=== PATIENT | female | born 1980 | race African-American/Black ===

== ENCOUNTER 2016-08-15 09:35 | Emergency (ER) | payer OTHER ==
[2016-08-15 09:45] VITALS: BP 150/103; PULSE 87; TEMP 98.2; BMI 43.0
[2016-08-15] MEDS ORDERED: TOBRAMYCIN 0.3% OPHTH SOLN 5 ML BOTTLE ONE (10:03)
[2016-08-15] MEDS ORDERED: TOBRA 0.3%/DEXAMETH 0.1% OPHTHALMIC SUSP 2.5 ML BTL ONE (10:06)
--- NOTE | 2016-08-15 10:08 | PDOC ---
History of Present Illness - General Chief Complaint: Eye Problem Stated Complaint: LEFT EYE IRRITATION Time Seen by Provider: 08/15/16 09:38 History Source: Patient (Patient walked in complaining of left eye irritation after being exposed to her recently diagnosed pink eye boyfriend) Exam Limitations: No Limitations - History of Present Illness Timing/Duration: 24 hours Severity: moderate Modifying Factors: improves with: cold therapy Associated Symptoms: reports: denies symptoms Past History - Travel Traveled outside of the country in the last 30 days: No Close contact w/someone who was outside of country & ill: No - Past Medical History Allergies/Adverse Reactions: Allergies Allergy/AdvReac Type Severity Reaction Status Date / Time No Known Allergies Allergy Verified 08/15/16 09:37 Home Medications: Ambulatory Orders Albuterol Sulfate Inhaler - [Ventolin HFA Inhaler -] 1 - 2 inh PO QID PRN Aspirin [Aspirin EC] 81 mg PO DAILY 06/06/15 Chlorthalidone [Hygroton -] 25 mg PO DAILY #14 tablet 01/24/16 Losartan Potassium [Cozaar -] 100 mg PO DAILY #30 tablet 01/25/16 Nebivolol [Bystolic -] 20 mg PO DAILY 05/14/16 Tobramycin/Dexamethasone [Tobradex Eye Drops] 5 ml OP TID #1 drops.susp Asthma: Yes (ASTHMA) HTN: Yes Suicide Attempt (Hx): No Other medical history: 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 - Surgical History Abdominal Surgery: Yes (MESH FOR HERNIA) - Immunization History Immunization Up to Date: Yes - Psycho/Social/Smoking Cessation Hx Anxiety: No Suicidal Ideation: No Smoking History: Current some day smoker Have you smoked in the past 12 months: Yes Number of Cigarettes Smoked Daily: 1 Information on smoking cessation initiated: Yes 'Breaking Loose' booklet given: 08/15/16 Hx Alcohol Use: Yes (social) Drug/Substance Use Hx: No Substance Use Type: None Hx Substance Use Treatment: No Review of Systems - Review of Systems Able to Perform ROS?: Yes Is the patient limited [place] proficient: Yes Constitutional: Yes: Symptoms Reported, Malaise, Other (Very Stressed recently) HEENTM: Yes: See HPI Respiratory: No: Symptoms reported, See HPI, Cough, Orthopnea, Shortness of Breath, SOB with Exertion, SOB at Rest, Stridor, Wheezing, Productive cough, Hemoptysis, Other Cardiac (ROS): No: Symptoms Reported, See HPI, Chest Pain, Edema, Irregular Heart Rate, Lightheadedness, Palpitations, Syncope, Chest Tightness, Other ABD/GI: No: Symptoms Reported, See HPI, Abdominal Distended, Abd. Pain w/ defecation, Blood Streaked Bowels, Constipated, Diarrhea, Difficulty Swallowing , Nausea, Poor Appetite, Poor Fluid Intake, Rectal Bleeding, Vomiting, Indigestion, Abdominal cramping, Tarry Stools, Other All Other Systems: Reviewed and Negative *Physical Exam - Vital Signs Last Vital Signs Temp Pulse Resp BP Pulse Ox 98.2 F 87 18 150/103 100 08/15/16 09:35 08/15/16 09:35 08/15/16 09:35 08/15/16 09:35 08/15/16 09:35 - Physical Exam General Appearance: Yes: Nourished, Appropriately Dressed. No: Apparent Distress HEENT: positive: ALLISON Neck: positive: Supple Lymphatic: negative: Adenopathy Musculoskeletal: positive: Normal Inspection Integumentary: positive: Normal Color Neurologic: positive: spice miller II-XII NML intact, Fully Oriented, Alert, Normal Mood/ Affect *DC/Admit/Observation/Transfer Diagnosis at time of Disposition: Conjunctivitis due to adenovirus, left eye - Discharge Dispostion Disposition: HOME Condition at time of disposition: Stable Admit: No - Prescriptions Prescriptions: Tobramycin/Dexamethasone [Tobradex Eye Drops] 5 ml OP TID #1 drops.susp - Referrals Referrals: Axel Pillai MD [Staff Physician] - - Patient Instructions Printed Discharge Instructions: How to Instill Eye Drops, DI for Red Eye - Post Discharge Activity Work/School Note: Back to Work
[2016-08-15] MEDS ORDERED: TOBRA 0.3%/DEXAMETH 0.1% OPHTHALMIC SUSP 2.5 ML BTL OS SCH (12:00)
== END 2016-08-15 10:35 | disposition home or self-care (01) ==
LOC: FER 09:35
DX: B30.1 Conjunctivitis due to adenovirus (principal); F17.210 Nicotine dependence, cigarettes, uncomplicated; J45.909 Unspecified asthma, uncomplicated; I10 Essential (primary) hypertension
CPT/HCPCS: 99283-25

== ENCOUNTER 2017-08-28 06:12 | Day surgery (SDC) | payer OTHER ==
[2017-08-27 12:34] VITALS: BMI 43.7
[2017-08-28] MEDS ORDERED: LIDOCAINE HCL/PF 2% SDV 5ML VIAL ONE (07:39)
[2017-08-28] MEDS ORDERED: SUCCINYLCHOLINE CHLORIDE 200 MG/10 ML VIAL ONE (07:39)
[2017-08-28] MEDS ORDERED: PROPOFOL 20 ML ONE ×2 (07:39)
[2017-08-28] MEDS ORDERED: fentaNYL CITRATE 250 MCG/5 ML VIAL ONE (07:39)
[2017-08-28] MEDS ORDERED: MIDAZOLAM HCL 2 MG/2 ML SINGLE DOSE VIAL ONE (07:39)
[2017-08-28] MEDS ORDERED: DEXTROSE 5%-0.45% SALINE 1,000 ML IV SCH (07:45)
--- NOTE | 2017-08-28 07:45 | HP ---
History & Physical Update - History History: No Change - Physical Physical: No Change - Assessment Assessment: No Change - Plan Plan: No Change
[2017-08-28] MEDS ORDERED: ACETAMINOPHEN 1000 MG/100 ML VIAL (NON FORMULARY) IVPB ONE (07:46)
[2017-08-28] MEDS ORDERED: ROCURONIUM BROMIDE 50 MG/5 ML VIAL ONE (08:02)
[2017-08-28] MEDS ORDERED: ceFAZolin SODIUM 1 GM VIAL IVPB ONE (08:03)
[2017-08-28] MEDS ORDERED: DEXAMETHASONE SOD PHOSPHATE 4 MG/1 ML VIAL ONE (08:03)
[2017-08-28] MEDS ORDERED: ONDANSETRON 4 MG/2 ML VIAL ONE ×2 (08:03→08:52)
[2017-08-28] MEDS ORDERED: ceFAZolin SODIUM 1 GM VIAL ONE (08:03)
[2017-08-28] MEDS ORDERED: VASOPRESSIN 20 UNITS/ML VIAL IV ONE (08:05)
[2017-08-28] MEDS ORDERED: ONDANSETRON 4 MG/2 ML VIAL IVPUSH PRN (08:23)
[2017-08-28] MEDS ORDERED: oxyCODONE HCL 5 MG TABLET PO PRN (08:23)
[2017-08-28] MEDS ORDERED: LACTATED RINGERS SOLUTION 1,000 ML IV SCH (08:30)
[2017-08-28] MEDS ORDERED: NEOSTIGMINE METHYLSULFATE 0.5 MG/ML - 10 ML MDV ONE (08:36)
[2017-08-28] MEDS ORDERED: GLYCOPYRROLATE 0.2 MG/1 ML VIAL ONE ×2 (08:36→08:52)
[2017-08-28] MEDS ORDERED: ACETAMINOPHEN INJECTION 100 ML IVPB ONE (09:15)
[2017-08-28 10:58] VITALS: TEMP 97.7
[2017-08-28 15:05] VITALS: BP 138/76; PULSE 66
--- NOTE | 2017-10-27 13:53 | OP ---
DATE OF OPERATION: 08/28/2017 PREOPERATIVE DIAGNOSES: Stress urinary incontinence, hypermobile urethra. POSTOPERATIVE DIAGNOSES: Stress urinary incontinence, hypermobile urethra. PROCEDURE: Suburethral sling and cystoscopy. ANESTHESIA: General. FINDINGS: A hypermobile urethra. IMPLANTS: Sling. DRAIN: None. ESTIMATED BLOOD LOSS: Minimal. SURGEON: Yang Benitez MD PREOPERATIVE INDICATIONS: The patient is a 37-year-old female who suffers from stress urinary incontinence. This is done by history, exam, and testing. She comes to the OR for sling placement. OPERATION: Patient was brought to the OR, placed on the table in the supine position, given general anesthesia and IV antibiotics, then placed in the modified lithotomy position. The groin was prepped and draped sterilely. Timeout was performed. Villeda catheter was placed. The mid portion of the urethra was identified and marked with a marking pen. Pitressin was injected underneath the vaginal mucosa in this area. An incision was made over the middle portion of the urethra in the midline. Using Metzenbaum scissors, the vaginal mucosa was sharply dissected off the periurethral tissues in a lateral fashion. Bladder was then emptied. Using trocars for an Altis mini sling, the sling was placed along the right side and to control through the incision and around to the obturator canal. It was then rotated and implanted. This was also done on the left side similarly. Cystoscopy was performed. No evidence of any perforation was seen. The sling was appropriately tightened and lay flat along the mid-urethra with low tension. Excess suture was excised. The incision was then closed with 2-0 Vicryl suture in a running fashion. Patient was woken up. Nilda [id number]
== END 2017-08-28 12:05 | disposition home or self-care (01) ==
LOC: JASU-SURG 06:12
PROVIDERS: ATTEND Urology
PROC: 0TSD0ZZ Reposition Urethra, Open Approach (ICD-10-PCS; principal; 2017-08-28 07:30)
DX: N39.3 Stress incontinence (female) (male) (principal); E66.01 Morbid (severe) obesity due to excess calories; K21.9 Gastro-esophageal reflux disease without esophagitis
CPT/HCPCS: 84703; 94760; J0131

== ENCOUNTER 2018-06-15 10:23 | Emergency (ER) | payer OTHER ==
[2018-06-15 10:41] VITALS: TEMP 99.8; BMI 51.2
[2018-06-15] MEDS ORDERED: ALBUTEROL SO4 2.5/IPRATROPIUM 0.5 INH SOL 3 ML VIAL.NEB. NEB ONE ×3 (11:04→13:00)
--- NOTE | 2018-06-15 11:14 | PDOC ---
History of Present Illness - General Chief Complaint: Respiratory Stated Complaint: RESPIRATORY COLD SYMPTOMS Time Seen by Provider: 06/15/18 10:29 History Source: Patient Exam Limitations: No Limitations - History of Present Illness Initial Comments: 06/15/18 11:07 CHIEF COMPLAINT: Asthma exacerbation for 2 days with a cold HISTORY OF PRESENT ILLNESS: 37-year-old female with a history of long-standing asthma, last treated with prednisone a couple of months ago for an upper respiratory infection followed by wheezing and asthma exacerbation. Patient also has a history of hypertension and morbid obesity. Patient was doing well until 2 days ago when she developed a sore throat and nasal congestion with a runny nose and white discharge. She denies fever or chills. Typically, after an upper respiratory infection her asthma flares up, and she says she has the same thing now that started with a cold. She's been having increased wheezing, especially at night, and shortness of breath secondary to wheezing. There is no chest pain. The shortness of breath gets worse when the wheezing is worse. REVIEW OF SYSTEMS: GENERAL/CONSTITUTIONAL: No fever or chills. No weakness. No weight change. HEAD, EYES, EARS, NOSE AND THROAT: No change in vision. No ear pain or discharge. No sore throat. CARDIOVASCULAR: No chest pain. Positive shortness of breath and wheezing. RESPIRATORY: Positive mild nonproductive cough, positive wheezing, no sputum production or hemoptysis. GASTROINTESTINAL: No nausea, vomiting, diarrhea or constipation. No rectal bleeding. GENITOURINARY: No dysuria, frequency, or change in urination. MUSCULOSKELETAL: No joint or muscle swelling or pain. No neck or back pain. SKIN AND BREASTS: No rash or easy bruising. NEUROLOGIC: No headache, vertigo, loss of consciousness, or loss of sensation. PSYCHIATRIC: No depression or anxiety. ENDOCRINE: No increased thirst. No abnormal weight change. HEMATOLOGIC/LYMPHATIC: No anemia, easy bleeding, or history of blood clots. ALLERGIC/IMMUNOLOGIC: No hives or skin allergy. No latex allergy. Past History - Past Medical History Allergies/Adverse Reactions: Allergies Allergy/AdvReac Type Severity Reaction Status Date / Time No Known Allergies Allergy Verified 06/15/18 10:41 Home Medications: Ambulatory Orders Aspirin [Aspirin EC] 81 mg PO DAILY 06/06/15 Chlorthalidone [Hygroton -] 25 mg PO DAILY #14 tablet 01/24/16 Losartan Potassium [Cozaar -] 100 mg PO DAILY #30 tablet 01/25/16 Nebivolol [Bystolic -] 20 mg PO DAILY 05/14/16 Albuterol 0.083% Nebulizer Sarah [Ventolin 0.083% Nebulizer Soln -] 1 neb NEB Q4H PRN #25 vial 06/15/18 Albuterol Sulfate Inhaler - [Ventolin HFA Inhaler -] 1 - 2 inh PO QID PRN #1 inhaler 06/15/18 Budesonide/Formeterol Fumarate [SYMBICORT 80/4.5mcg -] 2 inh PO BID PRN #1 cannister 06/15/18 Prednisone [Prednisone 50 MG TABLETS] 50 mg PO DAILY 5 Days #5 tablet 06/15/18 Asthma: Yes (ASTHMA) COPD: No DVT: No Diabetes: No HTN: Yes - Surgical History Abdominal Surgery: Yes (ventral hernia repair 2013) - Immunization History Immunization Up to Date: Yes - Suicide/Smoking/Psychosocial Hx Smoking History: Current some day smoker (Social smoker when she goes out to a bar, otherwise no cigarettes on a daily basis) Have you smoked in the past 12 months: No Number of Cigarettes Smoked Daily: 1 Information on smoking cessation initiated: Yes 'Breaking Loose' booklet given: 08/15/16 Hx Alcohol Use: Yes (OCCASSIONAL) Drug/Substance Use Hx: No Substance Use Type: None Hx Substance Use Treatment: No *Physical Exam - Vital Signs Last Vital Signs Temp Pulse Resp BP Pulse Ox 99.8 F H 73 20 163/111 H 96 06/15/18 10:24 06/15/18 10:24 06/15/18 10:24 06/15/18 10:24 06/15/18 10:24 - Physical Exam Comments: 06/15/18 11:15 GENERAL: The patient is awake, alert, and fully oriented, in no acute distress. She is morbidly obese. HEAD: Normal with no signs of trauma. EYES: Pupils equal, round and reactive to light, extraocular movements intact, sclera anicteric, conjunctiva clear. ENT: Ears normal, nares patent, oropharynx clear without exudates. Moist mucous membranes. NECK: Normal range of motion, supple without lymphadenopathy, JVD, or masses. LUNGS: Breath sounds with expiratory wheezes bilaterally. No crackles. HEART: Regular rate and rhythm, normal S1 and S2 without murmur, rub or gallop. ABDOMEN: Soft, nontender, normoactive bowel sounds. No guarding, no rebound. No masses. EXTREMITIES: Normal range of motion, no edema. No clubbing or cyanosis. No cords, erythema, or tenderness. No calf tenderness, no thigh tenderness. NEUROLOGICAL: Cranial nerves II through XII grossly intact. Normal speech, normal gait. PSYCH: Normal mood, normal affect. SKIN: Warm, Dry, normal turgor, no rashes or lesions noted. Moderate Sedation - Procedure Monitoring Vital Signs: Procedure Monitoring Vital Signs Temperature 99.8 F H 06/15/18 10:24 Pulse Rate 73 06/15/18 10:24 Respiratory Rate 20 06/15/18 10:24 Blood Pressure 163/111 H 06/15/18 10:24 O2 Sat by Pulse Oximetry (%) 96 06/15/18 10:24 Heart Score/ECG Review - ECG Impressions Comment:: 06/15/18 11:16 Total EKG shows normal sinus rhythm at a rate of 74 bpm. The axis is normal. The intervals are normal. There is T-wave inversion in lead aVL. There is otherwise no ST or T-wave abnormality. There is a prior EKG from 01/24/2016 which shows T-wave inversion in 1 and aVL. The patient has been on increased blood pressure medication since that time with better blood pressure control, and her voltage and ST segments appear improved since that time. Impression: Normal sinus rhythm with nonspecific T-wave abnormality. ED Treatment Course - LABORATORY CBC & Chemistry Diagram: 06/15/18 11:15 06/15/18 11:15 - RADIOLOGY Radiology Studies Ordered: Category Date Time Status CHEST PA & LAT [RAD] Stat Radiology 06/15/18 11:04 Ordered Medical Decision Making - Medical Decision Making 06/15/18 13:50 37-year-old female with history of asthma and morbid obesity, currently pending for gastric sleeve surgery. Patient presents complaining of asthma exacerbation over the last several days. She started with an upper respiratory infection with a sore throat and nasal congestion from a cold. She then started having wheezing which is typical for her in the setting of a URI. Today on examination, she has bilateral expiratory wheezes. She is in no distress. Chest x-ray shows no congestion and no pneumonia. Twelve-lead EKG shows normal sinus rhythm with nonspecific lateral T-wave inversion, present on prior EKG. Laboratory studies reviewed. There is no leukocytosis. The patient has mild anemia. The MCV is normal. The sodium is poor Low at 133, no treatment needed. Patient was treated with DuoNeb's and prednisone in the ED. Her peak flow improved from 150 pretreatment to 250 post treatment. Her repeat lung exam is clear with no wheezes. Patient is feeling much better and is stable for discharge. She states she has follow-up with her primary care physician this week, Dr. Dl Malloy. She is in the process of being cleared for bariatric surgery. The bariatric surgery is planned to help her control her blood pressure and improve her breathing. Laboratory Results - last 24 hr 06/15/18 06/15/18 06/15/18 11:15 11:15 11:15 WBC 4.2 RBC 4.15 Hgb 10.9 Hct 34.7 MCV 83.4 MCH 26.4 MCHC 31.6 L RDW 14.4 Plt Count 196 MPV 9.3 Absolute Neuts (auto) 2.5 Neutrophils % 61.0 Lymphocytes % 20.8 Monocytes % 15.1 H Eosinophils % 1.4 Basophils % 1.7 Sodium 133 L Potassium 3.8 Chloride 100 Carbon Dioxide 28 Anion Gap 5 L BUN 10 Creatinine 0.8 Creat Clearance w eGFR > 60 Random Glucose 110 H Calcium 8.3 L Total Bilirubin 0.4 AST 24 ALT 21 D Alkaline Phosphatase 76 Troponin I < 0.03 Total Protein 6.9 Albumin 3.4 L 06/15/18 14:06 Peak flow initially was 150 and is 250 post treatment. Patient is feeling much better. *DC/Admit/Observation/Transfer Diagnosis at time of Disposition: Asthma exacerbation Qualifiers: Asthma severity: moderate Asthma persistence: persistent Qualified Code(s): J45.41 - Moderate persistent asthma with (acute) exacerbation - Discharge Dispostion Disposition: HOME Condition at time of disposition: Improved Decision to Admit order: No - Prescriptions Prescriptions: Albuterol 0.083% Nebulizer Sarah [Ventolin 0.083% Nebulizer Soln -] 1 neb NEB Q4H PRN #25 vial PRN Reason: Asthma Albuterol Sulfate Inhaler - [Ventolin HFA Inhaler -] 1 - 2 inh PO QID PRN #1 inhaler PRN Reason: Wheezing Budesonide/Formeterol Fumarate [SYMBICORT 80/4.5mcg -] 2 inh PO BID PRN #1 cannister PRN Reason: Asthma Prednisone [Prednisone 50 MG TABLETS] 50 mg PO DAILY 5 Days #5 tablet - Referrals - Patient Instructions Printed Discharge Instructions: DI for Asthma -- Adult Additional Instructions: Today you were evaluated for shortness of breath secondary to asthma. The chest x-ray was clear. The EKG showed no new findings. The blood tests were also good. You're advised to take albuterol nebulizer or inhaler every 4 hours as needed for wheezing. Take prednisone 50 mg for 5 days in the morning. Use the Symbicort inhaler 2 puffs twice a day. Be sure to take all of your blood pressure medications every day. Follow-up with Dr. Dl Malloy later this week as planned to have a follow-up check of your asthma and her blood pressure. Return to the emergency department for any severe or progressive symptoms. - Post Discharge Activity
[2018-06-15 11:30] LABS: BASO % 1.7 % (0-2.0); EOS % 1.4 % (0-4.5); HEMATOCRIT 34.7 % (32.4-45.2); HEMOGLOBIN 10.9 GM/dl (10.7-15.3); LYMPH % 20.8 % (8-40); MCH 26.4 pg (25.7-33.7); MCHC 31.6 g/dl (32.0-36.0); MEAN CELL VOLUME 83.4 fl (80-96); MEAN PLT VOLUME 9.3 fl (7.5-11.1); MONO % 15.1 % (3.8-10.2); PLATELET COUNT 196 K/MM3 (134-434); RBC 4.15 M/mm3 (3.60-5.2); RDW 14.4 % (11.6-15.6); WHITE BLOOD COUNT 4.2 K/mm3 (4.0-10.8)
[2018-06-15 11:54] LABS: ALBUMIN 3.4 g/dl (3.5-5.0); ALK PHOS 76 U/L (32-92); ANION GAP 5 MMOL/L (8-16); BILIRUBIN,TOTAL 0.4 mg/dl (0.2-1.0); BLOOD UREA NITROGEN 10 mg/dl (7-18); CALCIUM 8.3 mg/dl (8.4-10.2); CHLORIDE 100 mmol/L (98-107); CO2 28 mmol/L (22-28); CREATININE 0.8 mg/dl (0.6-1.3); GLUCOSE,RANDOM 110 mg/dl (74-106); POTASSIUM 3.8 mmol/L (3.5-5.1); SGOT/AST 24 U/L (10-42); SGPT/ALT 21 U/L (10-40); SODIUM 133 mmol/L (136-145); TOT PROT 6.9 g/dl (6.4-8.3)
[2018-06-15] MEDS ORDERED: guaiFENesin 200 MG/10 ML 10 ML UNIT-DOSE CUPS PO ONE (12:33)
[2018-06-15] MEDS ORDERED: guaiFENesin/D-METHORPHAN HB 10 ML UNIT-DOSE CUPS ONE (12:34)
[2018-06-15] MEDS ORDERED: predniSONE 20 MG TABLET (UD) PO ONE (12:53)
[2018-06-15] MEDS ORDERED: guaiFENesin/D-METHORPHAN HB 10 ML UNIT-DOSE CUPS PO ONE (12:54)
[2018-06-15] MEDS ORDERED: predniSONE 10 MG TABLET (UD) ONE ×2 (13:00→13:01)
[2018-06-15 13:52] VITALS: BP 169/106; PULSE 75
[2018-06-15] MEDS ORDERED: amLODIPine BESYLATE 5 MG TABLET (FP) ONE (13:52)
[2018-06-15] MEDS ORDERED: amLODIPine BESYLATE 5 MG TABLET (FP) PO ONE (13:54)
--- NOTE | 2018-06-16 19:01 | EKG ---
Test Reason : Blood Pressure : / mmHG Vent. Rate : 074 BPM Atrial Rate : 074 BPM P-R Int : 162 ms QRS Dur : 076 ms QT Int : 382 ms P-R-T Axes : 049 005 075 degrees QTc Int : 424 ms NORMAL SINUS RHYTHM NONSPECIFIC T WAVE ABNORMALITY ABNORMAL ECG NO PREVIOUS ECGS AVAILABLE Confirmed by VALENTINA RUCKER, HAKEEM ([id number]) on 06/16/2018 7:01:13 PM Referred By: PILAR TAMAYO Confirmed By:HAKEEM MONTGOMERY MD
== END 2018-06-15 14:26 | disposition home or self-care (01) ==
LOC: FER 10:23
PROC: 3E0F7GC Introduction of Other Therapeutic Substance into Respiratory Tract, Via Natural or Artificial Opening (ICD-10-PCS; principal; 2018-06-15)
DX: J45.41 Moderate persistent asthma with (acute) exacerbation (principal)
CPT/HCPCS: 36415; 71046-TC-FY; 80053; 84484; 85025; 93005; 94640; 99284-25

== ENCOUNTER 2019-02-15 21:44 | Emergency (ER) | payer OTHER ==
[2019-02-15 21:48] VITALS: BP 188/116; PULSE 74; TEMP 98.2; BMI 47.1
[2019-02-15] MEDS ORDERED: predniSONE 20 MG TABLET (UD) PO ONE (22:40)
--- NOTE | 2019-02-15 22:46 | PDOC ---
Documentation entered by Celena Lainez SCRIBE, acting as scribe for Atilio Ramos MD. Atilio Ramos MD: This documentation has been prepared by the Fatou peguero Xhesika, SCRIBE, under my direction and personally reviewed by me in its entirety. I confirm that the documentation accurately reflects all work, treatment, procedures, and medical decision making performed by me. History of Present Illness - General Chief Complaint: Itching Stated Complaint: ITCHING Time Seen by Provider: 02/15/19 22:01 History Source: Patient Exam Limitations: No Limitations - History of Present Illness Initial Comments: 02/15/19 22:43 The patient is a 38 year old female, with a significant PMH of HTN who presents to the emergency department for 1 week of generalized migratory areas of pruritus itching. Patient states she was on a cruise to [facility] 2 weeks ago at the onset of her symptoms. Patient notes rashes appear after itching at a certain area for a long period of time. Patient notes her symptoms begin at her fingertips and migrate throughout her body, worsening at night. Patient notes her daughter is endorsing similar symptoms. Patient states she took Benadryl with no relief of symptoms. Patient notes she had an allergy test done 1 month ago that showed patient is only allergic to standard cat hair and white tree. PAST SURGICAL HISTORY: no significant history FAMILY HISTORY: no pertinent history SOCIAL HISTORY: Pt lives with family and is employed. MEDICATIONS: reviewed ALLERGIES: As per nursing notes Past History - Past Medical History Allergies/Adverse Reactions: Allergies Allergy/AdvReac Type Severity Reaction Status Date / Time No Known Drug Allergies Allergy Verified 02/15/19 21:45 Home Medications: Ambulatory Orders Chlorthalidone [Hygroton -] 25 mg PO DAILY #14 tablet 01/24/16 Methylprednisolone [Medrol Dose Dominguez] 4 mg PO ASDIR #21 tablet 02/15/19 Metoprolol Succinate [Toprol Xl] 100 mg PO DAILY 02/15/19 Asthma: Yes (ASTHMA) COPD: No DVT: No Diabetes: No HTN: Yes - Surgical History Abdominal Surgery: Yes (ventral hernia repair 2013) - Immunization History Immunization Up to Date: Yes - Suicide/Smoking/Psychosocial Hx Smoking History: Never smoked Have you smoked in the past 12 months: No Number of Cigarettes Smoked Daily: 1 Information on smoking cessation initiated: No 'Breaking Loose' booklet given: 08/15/16 Hx Alcohol Use: No Drug/Substance Use Hx: No Substance Use Type: None Hx Substance Use Treatment: No Review of Systems - Review of Systems Able to Perform ROS?: Yes Comments:: 02/15/19 22:44 General: No fevers or chills, no weakness, no weight loss HEENT: No change in vision. No sore throat,. No ear pain CardioVascular: No chest pain or shortness of breath Respiratory:No cough, or wheezing. Gastrointestinal: no nausea, vomiting, diarrhea or constipation, No rectal bleeding Genitourinary: No dysuria, hematuria, or frequency Musculoskeletal: No joint or muscle pain or swelling Neurologic: No headache, vertigo, dizziness or loss of consciousness Psychiatric: nor depression Skin: No rashes or easy bruising Endocrine: no increased thirst or abnormal weight change Allergic: (+) generalized migratory areas of pruritus itching All other systems reviewed and normal *Physical Exam - Vital Signs Last Vital Signs Temp Pulse Resp BP Pulse Ox 98.2 F 74 18 188/116 H 100 02/15/19 21:46 02/15/19 21:46 02/15/19 21:46 02/15/19 21:46 02/15/19 21:46 - Physical Exam Comments: 02/15/19 22:44 GENERAL: The patient is awake, alert, and fully oriented, in no acute distress. HEAD: Normal with no signs of trauma. EYES: Pupils equal, round and reactive to light, extraocular movements intact, sclera anicteric, conjunctiva clear. EXTREMITIES: Normal range of motion, no edema. NEUROLOGICAL: Normal speech, normal gait. PSYCH: Normal mood, normal affect. SKIN: Warm, Dry, normal turgor, no rashes or lesions noted. *DC/Admit/Observation/Transfer Diagnosis at time of Disposition: Itching - Discharge Dispostion Disposition: HOME Condition at time of disposition: Stable Decision to Admit order: No - Prescriptions Prescriptions: Methylprednisolone [Medrol Dose Dominguez] 4 mg PO ASDIR #21 tablet - Referrals - Patient Instructions Additional Instructions: For the itching take the Medrol Dosepak as directed by the pack. In addition you can take a long-acting antihistamine such as Claritin or Heather it is [id number]. Return to the emergency department immediately with ANY new, persistent or worsening symptoms. Continue any medications as previously prescribed by your physician. You should follow up with your primary doctor as soon as possible regarding today's emergency department visit. . Please make sure your doctor reviews the results of your emergency evaluation. Thank you for coming to the Emergency Department today for your care. It was a pleasure to see you today. Please note that your evaluation is INCOMPLETE until you follow-up with your doctor. - Post Discharge Activity
[2019-02-15] MEDS ORDERED: predniSONE 20 MG TABLET (UD) ONE (23:03)
== END 2019-02-15 23:15 | disposition home or self-care (01) ==
LOC: FER 21:44
DX: L29.9 Pruritus, unspecified (principal); Z72.0 Tobacco use; I10 Essential (primary) hypertension; J45.909 Unspecified asthma, uncomplicated
CPT/HCPCS: 99281-25

== ENCOUNTER 2019-08-07 20:55 | Observation (INO) | payer OTHER ==
[2019-08-07] MEDS ORDERED: cloNIDine HCL 0.1 MG TABLET PO ONE ×2 (21:10→23:45)
[2019-08-07] MEDS ORDERED: cloNIDine HCL 0.1 MG TABLET ONE (21:16)
[2019-08-07 22:17] LABS: BASO % 0.4 % (0-2.0); EOS % 1.2 % (0-4.5); HEMATOCRIT 32.9 % (32.4-45.2); MCH 27.7 pg (25.7-33.7); MCHC 33.4 g/dl (32.0-36.0); MEAN PLT VOLUME 10.1 fl (7.5-11.1); MONO % 6.3 % (3.8-10.2); NEUT % 72.1 % (42.8-82.8); PLATELET COUNT 224 K/MM3 (134-434); RBC 3.97 M/mm3 (3.60-5.2); RDW 14.7 % (11.6-15.6); WHITE BLOOD COUNT 10.9 K/mm3 (4.0-10.8)
[2019-08-07 22:18] LABS: ALBUMIN 3.4 g/dl (3.4-5.0); BILIRUBIN,TOTAL 0.4 mg/dl (0.2-1); CALCIUM 8.4 mg/dl (8.5-10); CREATININE 0.8 mg/dl (0.55-1.3); POTASSIUM 4.1 mmol/L (3.5-5.1); TOT PROT 6.8 g/dl (6.4-8.2)
[2019-08-07] MEDS ORDERED: methylPREDNISolone NA SUCC 125 MG/2 ML VIAL IVPB ONE (22:31)
[2019-08-07] MEDS ORDERED: methylPREDNISolone NA SUCC 125 MG/2 ML VIAL ONE (22:37)
--- NOTE | 2019-08-07 23:06 | PDOC ---
Documentation entered by Celena Lainez SCRIBE, acting as scribe for Atilio Ramos MD. Atilio Ramos MD: This documentation has been prepared by the Fatou peugero Xhesika, SCRIBE, under my direction and personally reviewed by me in its entirety. I confirm that the documentation accurately reflects all work, treatment, procedures, and medical decision making performed by me. History of Present Illness - General Chief Complaint: Respiratory Stated Complaint: COUGH & SOB Time Seen by Provider: 08/07/19 21:03 History Source: Patient Exam Limitations: No Limitations - History of Present Illness Initial Comments: 08/07/19 21:09 The patient is a 39 year old female, with a significant PMH of HTN, asthma and sleep apnea who presents to the emergency department for 2 weeks of shortness of breath. The patient states she has been having these asthma attacks through out the day, associated with nausea and white phlegm and worsened when laying down. Pt states she used her albuterol pump 1hr prior to arrival with no improvement of symptoms. PAST SURGICAL HISTORY: no significant history FAMILY HISTORY: no pertinent history SOCIAL HISTORY: Pt lives with family and is employed. MEDICATIONS: reviewed ALLERGIES: As per nursing notes 08/07/19 23:03 Assessment and plan: This is a 39-year-old female who comes in complaining of shortness of breath. Patient said over the last couple of days she has had increased difficulty breathing especially when she lays down or exerts herself. Patient said is associated with some mild chest discomfort but no chest pain. Patient says she also has been coughing up some frothy white phlegm. Patient otherwise took her albuterol inhaler multiple times today without any relief and when she came in her blood pressure was very high. Patient was given clonidine with much improved blood pressure and work-up was obtained including CBC, comp, troponin, EKG. Patient checks respiratory showed no acute pathology. Patient's BNP was mildly elevated. Patient's EKG showed some left atrial enlargement and nonspecific ST- T wave changes at a rate of 79 EKG was sinus rhythm Given patient's risk factors I am going to admit her to a observation bed and rule her out. Patient will be admitted to observation under the hospitalist service. Past History - Past Medical History Allergies/Adverse Reactions: Allergies Allergy/AdvReac Type Severity Reaction Status Date / Time No Known Drug Allergies Allergy Verified 02/15/19 21:45 Home Medications: Ambulatory Orders Chlorthalidone [Hygroton -] 25 mg PO DAILY #14 tablet 01/24/16 Metoprolol Succinate [Toprol Xl] 100 mg PO DAILY 02/15/19 Albuterol Sulfate Inhaler - [Ventolin Hfa Inhaler -] 2 inh PO Q4H PRN 08/07/19 Clonidine HCl [Catapres] 0.1 mg PO PRN PRN 08/07/19 Telmisartan [Micardis] 80 mg PO DAILY 08/07/19 Asthma: Yes (ASTHMA) COPD: No DVT: No Diabetes: No HTN: Yes - Surgical History Abdominal Surgery: Yes (ventral hernia repair 2013) - Immunization History Immunization Up to Date: Yes - Psycho Social/Smoking Cessation Hx Smoking History: Never smoked Have you smoked in the past 12 months: No Number of Cigarettes Smoked Daily: 1 'Breaking Loose' booklet given: 08/15/16 Hx Alcohol Use: No Drug/Substance Use Hx: No Substance Use Type: None Hx Substance Use Treatment: No Review of Systems - Review of Systems Able to Perform ROS?: Yes Comments:: 08/07/19 21:18 General: No fevers or chills, no weakness, no weight loss HEENT: No change in vision. No sore throat,. No ear pain CardioVascular: No chest pain. + shortness of breath Respiratory:No cough, or wheezing. Gastrointestinal: + nausea. + white phlegm. No vomiting, diarrhea or constipation, No rectal bleeding Genitourinary: No dysuria, hematuria, or frequency Musculoskeletal: No joint or muscle pain or swelling Neurologic: No headache, vertigo, dizziness or loss of consciousness Psychiatric: nor depression Skin: No rashes or easy bruising Endocrine: no increased thirst or abnormal weight change Allergic: no skin or latex allergy All other systems reviewed and normal *Physical Exam - Vital Signs Last Vital Signs Temp Pulse Resp BP Pulse Ox 98.1 F 67 17 183/109 H 99 08/07/19 22:47 08/07/19 22:47 08/07/19 22:47 08/07/19 22:47 08/07/19 22:47 - Physical Exam 08/07/19 21:24 General: Well-nourished well-developed individual, no acute distress HEENT: Throat: Normal, tonsils normal, no erythema or exudate Neck: Supple, no meningeal signs, no lymphadenopathy Eyes::Pupils equal reactive and round, extraocular motion intact Chest: Nontender to palpation Cardiac: S1-S2 normal, regular rate and rhythm, no murmurs rubs or gallops Respiratory: Lungs clear to auscultation bilateral Abdomen: Soft, nondistended, normal bowel sounds, nontender to palpation diffusely Extremities: Warm, dry, no cyanosis, clubbing, or edema Skin: No rashes Neuro: Alert and oriented x3, nonfocal exam, grossly intact, normal gait Psych: Normal mood and affect ED Treatment Course - LABORATORY CBC & Chemistry Diagram: 08/07/19 21:45 08/07/19 21:45 - ADDITIONAL ORDERS Additional order review: Laboratory Results 08/07/19 08/07/19 08/07/19 21:45 21:45 21:45 Sodium 138 Potassium 4.1 Chloride 107 Carbon Dioxide 24 Anion Gap 7 L BUN 14.0 Creatinine 0.8 Est GFR (CKD-EPI)AfAm 106.13 Est GFR (CKD-EPI)NonAf 91.57 Random Glucose 102 Calcium 8.4 L Total Bilirubin 0.4 AST 24 ALT 26 Alkaline Phosphatase 81 Creatine Kinase 132 Troponin I < 0.03 B-Natriuretic Peptide 398.5 H Total Protein 6.8 Albumin 3.4 08/07/19 21:45 RBC 3.97 MCV 83.0 MCHC 33.4 RDW 14.7 MPV 10.1 Neutrophils % 72.1 Lymphocytes % 20.0 Monocytes % 6.3 Eosinophils % 1.2 Basophils % 0.4 - RADIOLOGY Radiology Studies Ordered: Category Date Time Status CHEST X-RAY PORTABLE* [RAD] Stat Radiology 08/07/19 21:09 Taken - Medications Given in the ED: ED Medications Discontinued Medications Generic Name Dose Route Start Last Admin Trade Name Freq PRN Reason Stop Dose Admin Clonidine 0.2 mg 08/07/19 21:10 08/07/19 21:18 Catapres - PO 08/07/19 21:11 0.2 mg ONCE ONE Administration Methylprednisolone Sodium Succinate 125 mg 08/07/19 22:31 08/07/19 22:43 Solu-Medrol - IVPB 08/07/19 22:32 125 mg ONCE ONE Administration Discharge - Discharge Information Problems reviewed: Yes Clinical Impression/Diagnosis: Breathing difficulty Condition: Good Disposition: HOME - Admission Yes - Follow up/Referral Referrals: Dl Malloy MD [Primary Care Provider] - - Patient Discharge Instructions - Post Discharge Activity
[2019-08-07] MEDS ORDERED: LABETALOL HCL 200 MG TABLET (FP) PO ONE (23:37)
[2019-08-07] MEDS ORDERED: LABETALOL HCL 200 MG TABLET (FP) ONE (23:47)
[2019-08-08 01:36] VITALS: BMI 52.0
[2019-08-08] MEDS ORDERED: HEPARIN NA (PORCINE) 5,000 UNITS/ML 1ML VIAL SQ SCH (06:00)
[2019-08-08] MEDS ORDERED: LABETALOL HCL 200 MG TABLET (FP) PO SCH (06:00)
--- NOTE | 2019-08-08 07:22 | HP ---
CHIEF COMPLAINT: Shortness of breath PCP: Dr. Dl Malloy HISTORY OF PRESENT ILLNESS: Patient is a 39 year-old female with a PMH significant for HTN, pre-eclampsia, bronchial asthma, HUSAM, and exogenous obesity, who presented to ED with shortness of breath and chest tightness. She denied fever or chills. She denied nausea, vomiting, diarrhea or abdominal pain. She denied headache or lightheadedness. She states that she had cardiac work up outpatient in preparation for gastric sleeve. She has seen Dr. Zac Sands ([facility]) for bariatric surgery. ER course was notable for: (1) Troponin neg x 1 (2) BP 232/156 Recent Travel: No PAST MEDICAL HISTORY: Hypertension Asthma HUSAM Obesity PAST SURGICAL HISTORY: x 2 Umbilical hernia repair Social History: lives with children Smoking: quit 08/2018 Alcohol: no Drugs: no Family History: Father: HTN, Sister: HTN Allergies No Known Drug Allergies Allergy (Verified 02/15/19 21:45) HOME MEDICATIONS: Home Medications Medication Instructions Recorded Chlorthalidone [Hygroton -] 25 mg PO DAILY #14 tablet 01/24/16 Metoprolol Succinate [Toprol Xl] 100 mg PO DAILY 02/15/19 Albuterol Sulfate Inhaler - 2 inh PO Q4H PRN 08/07/19 [Ventolin Hfa Inhaler -] Clonidine HCl [Catapres] 0.1 mg PO PRN PRN 08/07/19 Telmisartan [Micardis] 80 mg PO DAILY 08/07/19 REVIEW OF SYSTEMS CONSTITUTIONAL: Absent: fever, chills, diaphoresis, generalized weakness, malaise, loss of appetite, weight change HEENT: Absent: rhinorrhea, nasal congestion, throat pain, throat swelling, difficulty swallowing, mouth swelling, ear pain, eye pain, visual changes CARDIOVASCULAR: +SOB, chest tightness Absent: chest pain, syncope, palpitations, irregular heart rate, lightheadedness , peripheral edema RESPIRATORY: Absent: cough, shortness of breath, dyspnea with exertion, orthopnea, wheezing, stridor, hemoptysis GASTROINTESTINAL: Absent: abdominal pain, abdominal distension, nausea, vomiting, diarrhea, constipation, melena, hematochezia GENITOURINARY: Absent: dysuria, frequency, urgency, hesitancy, hematuria, flank pain, genital pain MUSCULOSKELETAL: Absent: myalgia, arthralgia, joint swelling, back pain, neck pain SKIN: Absent: rash, itching, pallor HEMATOLOGIC/IMMUNOLOGIC: Absent: easy bleeding, easy bruising, lymphadenopathy, frequent infections ENDOCRINE: Absent: unexplained weight gain, unexplained weight loss, heat intolerance, cold intolerance NEUROLOGIC: Absent: headache, focal weakness or paresthesias, dizziness, unsteady gait, seizure, mental status changes, bladder or bowel incontinence PSYCHIATRIC: Absent: anxiety, depression, suicidal or homicidal ideation, hallucinations. PHYSICAL EXAMINATION Vital Signs - 24 hr 08/07/19 08/07/19 08/07/19 21:01 22:00 22:47 Temperature 98.1 F 98.1 F Pulse Rate 78 Pulse Rate [ 64 67 Right Radial] Respiratory 20 20 17 Rate Blood Pressure 232/156 H Blood Pressure 208/127 H 183/109 H [Left Arm] O2 Sat by Pulse 96 99 99 Oximetry (%) 08/07/19 08/08/19 08/08/19 23:45 00:43 01:15 Temperature 98.7 F Pulse Rate 78 Pulse Rate [ 60 Right Radial] Respiratory 18 18 Rate Blood Pressure 177/114 H Blood Pressure 192/124 H 172/111 H [Left Arm] O2 Sat by Pulse 100 100 Oximetry (%) 08/08/19 08/08/19 03:30 06:17 Temperature 98.3 F Pulse Rate 80 Pulse Rate [ Right Radial] Respiratory 19 Rate Blood Pressure 167/100 Blood Pressure [Left Arm] O2 Sat by Pulse 99 Oximetry (%) GENERAL: Awake, alert, and fully oriented, in no acute distress. HEAD: Normal with no signs of trauma. EYES: Pupils equal, round and reactive to light, extraocular movements intact, sclera anicteric, conjunctiva clear. No lid lag. EARS, NOSE, THROAT: Ears normal, nares patent, oropharynx clear without exudates. Moist mucous membranes. NECK: Normal range of motion, supple without lymphadenopathy, JVD, or masses. LUNGS: Breath sounds equal, clear to auscultation bilaterally. No wheezes, and no crackles. No accessory muscle use. HEART: Regular rate and rhythm, normal S1 and S2 without murmur, rub or gallop. ABDOMEN: Soft, nontender, not distended, normoactive bowel sounds, no guarding, no rebound, no masses. No hepatomegaly or splenomegaly. MUSCULOSKELETAL: Normal range of motion at all joints. No bony deformities or tenderness. No CVA tenderness. UPPER EXTREMITIES: 2+ pulses, warm, well-perfused. No cyanosis. No clubbing. No peripheral edema. LOWER EXTREMITIES: 2+ pulses, warm, well-perfused. No calf tenderness. No peripheral edema. NEUROLOGICAL: Cranial nerves II-XII intact. Normal speech. Normal gait. PSYCHIATRIC: Cooperative. Good eye contact. Appropriate mood and affect. SKIN: Warm, dry, normal turgor, no rashes or lesions noted, normal capillary refill. Laboratory Results - last 24 hr 08/07/19 08/07/19 08/07/19 21:45 21:45 21:45 WBC 10.9 H RBC 3.97 Hgb 11.0 Hct 32.9 MCV 83.0 MCH 27.7 MCHC 33.4 RDW 14.7 Plt Count 224 MPV 10.1 Absolute Neuts (auto) 7.9 Neutrophils % 72.1 Lymphocytes % 20.0 Monocytes % 6.3 Eosinophils % 1.2 Basophils % 0.4 Sodium 138 Potassium 4.1 Chloride 107 Carbon Dioxide 24 Anion Gap 7 L BUN 14.0 Creatinine 0.8 Est GFR (CKD-EPI)AfAm 106.13 Est GFR (CKD-EPI)NonAf 91.57 Random Glucose 102 Calcium 8.4 L Total Bilirubin 0.4 AST 24 ALT 26 Alkaline Phosphatase 81 Creatine Kinase 132 Troponin I < 0.03 B-Natriuretic Peptide Total Protein 6.8 Albumin 3.4 08/07/19 08/08/19 21:45 00:55 WBC RBC Hgb Hct MCV MCH MCHC RDW Plt Count MPV Absolute Neuts (auto) Neutrophils % Lymphocytes % Monocytes % Eosinophils % Basophils % Sodium Potassium Chloride Carbon Dioxide Anion Gap BUN Creatinine Est GFR (CKD-EPI)AfAm Est GFR (CKD-EPI)NonAf Random Glucose Calcium Total Bilirubin AST ALT Alkaline Phosphatase Creatine Kinase Troponin I < 0.02 B-Natriuretic Peptide 398.5 H Total Protein Albumin ASSESSMENT/PLAN: Patient is a 39 year-old female with a PMH significant for HTN, bronchial asthma , HUSAM, and exogenous obesity, placed on observation for SOB and chest tightness. Chest tightness --troponin neg x 1, two pending --ECG: no acute ischemia --telemetry monitoring --cardiology consult --patient had recent cardiac workup for planned gastric bypass Hypertension --continue telmisartan, metoprolol, HCTZ; start nifedipine Asthma --duonebs HUSAM --CPAP at night FEN Fluids: PO intake adequate Electrolytes: replete as indicated Nutrition: low sodium DVT Prophylaxis: subq heparin Dispo: continues to require observation. Full code. Visit type - Emergency Visit Emergency Visit: Yes ED Registration Date: 08/07/19 Care time: The patient presented to the Emergency Department on the above date and was hospitalized for further evaluation of their emergent condition. - New Patient This patient is new to me today: Yes Date on this admission: 08/15/19 - Critical Care Critical Care patient: No
[2019-08-08] MEDS ORDERED: cloNIDine HCL 0.1 MG TABLET PO PRN ×2 (07:24→09:55)
[2019-08-08 07:46] LABS: HEMATOCRIT 35.3 % (32.4-45.2); HEMOGLOBIN 11.2 GM/dl (10.7-15.3); MCH 26.6 pg (25.7-33.7); MCHC 31.9 g/dl (32.0-36.0); MEAN CELL VOLUME 83.6 fl (80-96); MEAN PLT VOLUME 10.3 fl (7.5-11.1); PLATELET COUNT 239 K/MM3 (134-434); RBC 4.22 M/mm3 (3.60-5.2); WHITE BLOOD COUNT 12.3 K/mm3 (4.0-10.8)
[2019-08-08 07:51] LABS: CALCIUM 8.5 mg/dl (8.5-10); CREATININE 0.9 mg/dl (0.55-1.3); POTASSIUM 4.4 mmol/L (3.5-5.1)
[2019-08-08] MEDS: ALBUTEROL SO4 2.5/IPRATROPIUM 0.5 INH SOL 3 ML VIAL.NEB. NEB SCH ×2 (09:27→11:58)
[2019-08-08] MEDS ORDERED: predniSONE 20 MG TABLET (UD) PO SCH (10:00)
[2019-08-08] MEDS ORDERED: VALSARTAN 160 MG TABLET (UD) PO SCH (10:00)
[2019-08-08] MEDS ORDERED: PATIENT'S OWN MEDICATION (NON-FORMULARY) (Telmisartan [Micardis] 80 MG) PO SCH (10:00)
[2019-08-08] MEDS ORDERED: CHLORTHALIDONE 25 MG TABLET PO SCH (10:00)
[2019-08-08] MEDS ORDERED: LISINOPRIL 20 MG TABLET (FP) PO SCH (10:00)
--- NOTE | 2019-08-08 10:06 | EKG ---
Test Reason : Blood Pressure : / mmHG Vent. Rate : 079 BPM Atrial Rate : 079 BPM P-R Int : 124 ms QRS Dur : 070 ms QT Int : 386 ms P-R-T Axes : 031 041 032 degrees QTc Int : 442 ms POOR DATA QUALITY, INTERPRETATION MAY BE ADVERSELY AFFECTED NORMAL SINUS RHYTHM POSSIBLE LEFT ATRIAL ENLARGEMENT NONSPECIFIC ST AND T WAVE ABNORMALITY ABNORMAL ECG WHEN COMPARED WITH ECG OF 15-JUN-2018 10:28, NONSPECIFIC T WAVE ABNORMALITY, IMPROVED IN LATERAL LEADS Confirmed by Muna Hull ([id number]) on 08/08/2019 10:05:52 AM Referred By: Nuria KELLEY Confirmed By:Muna Hull
--- NOTE | 2019-08-08 11:04 | CON.CARD ---
Consult Consult Specialty:: Cardiology Referred by:: Hospitalist Reason for Consultation:: Cardiac evaluation - History of Present Illness Chief Complaint: Shortness of breath History of Present Illness: Patient is a 39 year old female with underlying history of bronchial asthma, recently diagnosed obstructive sleep apnea s/p sleep study (to be followed with another study on NIPPV) and exogenous obesity [place] [facility] [place]. She complained of chest tightness with above but denied palpitations. She denies fever or chills. She denies nausea, vomiting , diarrhea or abdominal pain. She denies headache or lightheadedness. She states that she had cardiac work up outpatient in preparation for gastric sleeve. She had seen Dr. Zac Sands ([facility] ) for bariatric surgery. - History Source History Provided By: Patient, Medical Record Limitations to Obtaining History: No Limitations - Past Medical History Cardio/Vascular: Yes: HTN Pulmonary: Yes: Asthma, Sleep Apnea ...LMP: 07/20/19 - Past Surgical History Past Surgical History: Yes: Additional Surgical History: Umbilical hernia repair - Alcohol/Substance Use Hx Alcohol Use: Yes - Smoking History Smoking history: Former smoker Have you smoked in the past 12 months: No Aproximately how many cigarettes per day: 1 If you are a former smoker, when did you quit?: 08/2018 Home Medications - Allergies Allergies/Adverse Reactions: Allergies Allergy/AdvReac Type Severity Reaction Status Date / Time No Known Drug Allergies Allergy Verified 02/15/19 21:45 - Home Medications Home Medications: Ambulatory Orders Chlorthalidone [Hygroton -] 25 mg PO DAILY #14 tablet 01/24/16 Metoprolol Succinate [Toprol Xl] 100 mg PO DAILY 02/15/19 Albuterol Sulfate Inhaler - [Ventolin Hfa Inhaler -] 2 inh PO Q4H PRN 08/07/19 Clonidine HCl [Catapres] 0.1 mg PO PRN PRN 08/07/19 Telmisartan [Micardis] 80 mg PO DAILY 08/07/19 Family Medical History Other Family History: History of breast CA Review of Systems - Review of Systems Constitutional: denies: Chills, Fever Cardiovascular: reports: Shortness of Breath. denies: Chest Pain, Palpitations Respiratory: reports: Cough, SOB. denies: Hemoptysis, Orthopnea, PND, Wheezing Gastrointestinal: denies: Abdominal Pain, Constipation, Diarrhea, Melena, Nausea , Rectal Bleeding, Vomiting Musculoskeletal: denies: Back Pain, Joint Pain Neurological: denies: Dizziness, Headache, Seizure, Syncope Vital Signs: Vital Signs Temperature 98.5 F 08/08/19 07:00 Pulse Rate 85 08/08/19 07:00 Respiratory Rate 19 08/08/19 07:00 Blood Pressure 137/82 08/08/19 07:00 O2 Sat by Pulse Oximetry (%) 96 08/08/19 07:00 Eyes: Yes: PERRL HENT: Yes: Atraumatic Neck: Yes: Supple Respiratory: Yes: Diminished Gastrointestinal: Yes: Normal Bowel Sounds, Soft, Abdomen, Obese. No: Tenderness Cardiovascular: Yes: Regular Rate and Rhythm JVD: No Carotid Bruit: No PMI: Non-Displaced Heart Sounds: Yes: S1, S2. No: Gallop Murmur: No: Systolic Murmur, Diastolic Murmur Edema: No - Other Data Labs, Other Data: CBC, BMP 08/08/19 07:02 08/08/19 07:02 Troponin, BNP 08/07/19 08/07/19 08/08/19 21:45 21:45 00:55 Troponin I < 0.03 < 0.02 B-Natriuretic Peptide 398.5 H 08/08/19 08/08/19 07:02 07:02 Troponin I Cancelled < 0.03 B-Natriuretic Peptide Laboratory Results - last 24 hr 08/07/19 08/07/19 08/07/19 21:35 21:45 21:45 WBC RBC Hgb Hct MCV MCH MCHC RDW Plt Count MPV Absolute Neuts (auto) Neutrophils % Lymphocytes % Monocytes % Eosinophils % Basophils % Sodium 138 Potassium 4.1 Chloride 107 Carbon Dioxide 24 Anion Gap 7 L BUN 14.0 Creatinine 0.8 Est GFR (CKD-EPI)AfAm 106.13 Est GFR (CKD-EPI)NonAf 91.57 Random Glucose 102 Calcium 8.4 L Total Bilirubin 0.4 AST 24 ALT 26 Alkaline Phosphatase 81 Creatine Kinase 132 Troponin I < 0.03 B-Natriuretic Peptide Total Protein 6.8 Albumin 3.4 POC Urine HCG, Qual Negative 08/07/19 08/07/19 08/08/19 21:45 21:45 00:55 WBC 10.9 H RBC 3.97 Hgb 11.0 Hct 32.9 MCV 83.0 MCH 27.7 MCHC 33.4 RDW 14.7 Plt Count 224 MPV 10.1 Absolute Neuts (auto) 7.9 Neutrophils % 72.1 Lymphocytes % 20.0 Monocytes % 6.3 Eosinophils % 1.2 Basophils % 0.4 Sodium Potassium Chloride Carbon Dioxide Anion Gap BUN Creatinine Est GFR (CKD-EPI)AfAm Est GFR (CKD-EPI)NonAf Random Glucose Calcium Total Bilirubin AST ALT Alkaline Phosphatase Creatine Kinase Troponin I < 0.02 B-Natriuretic Peptide 398.5 H Total Protein Albumin POC Urine HCG, Qual 08/08/19 08/08/19 08/08/19 07:02 07:02 07:02 WBC 12.3 H RBC 4.22 Hgb 11.2 Hct 35.3 MCV 83.6 MCH 26.6 MCHC 31.9 L RDW 15.0 Plt Count 239 MPV 10.3 Absolute Neuts (auto) Neutrophils % Lymphocytes % Monocytes % Eosinophils % Basophils % Sodium 136 Potassium 4.4 Chloride 106 Carbon Dioxide 22 Anion Gap 8 BUN 13.0 Creatinine 0.9 Est GFR (CKD-EPI)AfAm 92.05 Est GFR (CKD-EPI)NonAf 79.42 Random Glucose 205 H Calcium 8.5 Total Bilirubin AST ALT Alkaline Phosphatase Creatine Kinase Troponin I Cancelled < 0.03 B-Natriuretic Peptide Total Protein Albumin POC Urine HCG, Qual Sinus rhythm with nonspecific T abnormality Problem List - Problems (1) HUSAM (obstructive sleep apnea) Code(s): G47.33 - OBSTRUCTIVE SLEEP APNEA (ADULT) (PEDIATRIC) (2) Asthma exacerbation Code(s): J45.901 - UNSPECIFIED ASTHMA WITH (ACUTE) EXACERBATION Qualifiers: Asthma severity: moderate Asthma persistence: persistent Qualified Code(s ): J45.41 - Moderate persistent asthma with (acute) exacerbation (3) Hypertension Code(s): I10 - ESSENTIAL (PRIMARY) HYPERTENSION Qualifiers: Hypertension type: essential hypertension Qualified Code(s): I10 - Essential (primary) hypertension (4) Shortness of breath Code(s): R06.02 - SHORTNESS OF BREATH Assessment/Plan 1. Shortness of breath with underlying bronchial asthma and HUSAM 2. Exogenous obesity await gastric sleeve 3. HUSAM on CPAP 4. HTN PLAN: 1. Continue Telmesartan 80 mg QD (or equivalent) and Metoprolol ER 100 mg QD 2. Discontinue Labetalol 3. Add either Amlodipine or Procardia XL for added BP management 4. Continue HCTZ 25 mg QD 5. Discontinue Lisinopril as combination of ACEI and ARB poses risk of renal compromise 6. Obtain cardiac work up that was done as outpatient Further plans are to follow Misha Mathias MD
[2019-08-08] MEDS ORDERED: NIFEdipine E.R 60 MG TABLET PO SCH (11:15)
--- NOTE | 2019-08-08 11:26 | DS ---
Physical Exam: SUBJECTIVE: Patient seen and examined OBJECTIVE: Vital Signs Period Temp Pulse Resp BP Sys/[place] Pulse Ox Last 24 Hr 98.1 F-98.7 F 60-85 17-20 137-232/82-156 96-100 PHYSICAL EXAM GENERAL: The patient is awake, alert, and fully oriented, in no acute distress. LUNGS: Breath sounds equal, clear to auscultation bilaterally HEART: Regular rate and rhythm, S1, S2 ABDOMEN: Soft, nontender, nondistended EXTREMITIES: 2+ pulses, warm, well-perfused, no edema. NEUROLOGICAL: Cranial nerves II through XII grossly intact. Normal speech. LABS Laboratory Results - last 24 hr 08/07/19 08/07/19 08/07/19 21:35 21:45 21:45 WBC RBC Hgb Hct MCV MCH MCHC RDW Plt Count MPV Absolute Neuts (auto) Neutrophils % Lymphocytes % Monocytes % Eosinophils % Basophils % Sodium 138 Potassium 4.1 Chloride 107 Carbon Dioxide 24 Anion Gap 7 L BUN 14.0 Creatinine 0.8 Est GFR (CKD-EPI)AfAm 106.13 Est GFR (CKD-EPI)NonAf 91.57 Random Glucose 102 Calcium 8.4 L Total Bilirubin 0.4 AST 24 ALT 26 Alkaline Phosphatase 81 Creatine Kinase 132 Troponin I < 0.03 B-Natriuretic Peptide Total Protein 6.8 Albumin 3.4 POC Urine HCG, Qual Negative 08/07/19 08/07/19 08/08/19 21:45 21:45 00:55 WBC 10.9 H RBC 3.97 Hgb 11.0 Hct 32.9 MCV 83.0 MCH 27.7 MCHC 33.4 RDW 14.7 Plt Count 224 MPV 10.1 Absolute Neuts (auto) 7.9 Neutrophils % 72.1 Lymphocytes % 20.0 Monocytes % 6.3 Eosinophils % 1.2 Basophils % 0.4 Sodium Potassium Chloride Carbon Dioxide Anion Gap BUN Creatinine Est GFR (CKD-EPI)AfAm Est GFR (CKD-EPI)NonAf Random Glucose Calcium Total Bilirubin AST ALT Alkaline Phosphatase Creatine Kinase Troponin I < 0.02 B-Natriuretic Peptide 398.5 H Total Protein Albumin POC Urine HCG, Qual 08/08/19 08/08/19 08/08/19 07:02 07:02 07:02 WBC 12.3 H RBC 4.22 Hgb 11.2 Hct 35.3 MCV 83.6 MCH 26.6 MCHC 31.9 L RDW 15.0 Plt Count 239 MPV 10.3 Absolute Neuts (auto) Neutrophils % Lymphocytes % Monocytes % Eosinophils % Basophils % Sodium 136 Potassium 4.4 Chloride 106 Carbon Dioxide 22 Anion Gap 8 BUN 13.0 Creatinine 0.9 Est GFR (CKD-EPI)AfAm 92.05 Est GFR (CKD-EPI)NonAf 79.42 Random Glucose 205 H Calcium 8.5 Total Bilirubin AST ALT Alkaline Phosphatase Creatine Kinase Troponin I Cancelled < 0.03 B-Natriuretic Peptide Total Protein Albumin POC Urine HCG, Qual HOSPITAL COURSE: Date of Admission:08/07/19 Date of Discharge: 08/08/19 Pre hospital course Patient is a 39 year-old female with a PMH significant for HTN, pre-eclampsia, bronchial asthma, HUSAM, and exogenous obesity, who presented to [facility] with shortness of breath and chest tightness. She denied fever or chills. She denied nausea, vomiting, diarrhea or abdominal pain. She denied headache or lightheadedness. She states that she had cardiac work up outpatient in preparation for gastric sleeve. She has seen Dr. Zac Sands ([facility]) for bariatric surgery. ER course (1) Troponin neg x 1 (2) BP 232/156 Subsequent hospital course Patient is a 39 year-old female with a PMH significant for HTN, bronchial asthma , HUSAM, and exogenous obesity, placed on observation for SOB and chest tightness. Chest tightness --troponin neg x 3 --ECG: no acute ischemia --telemetry monitoring --seen and evaluated by cardiology; patient had recent cardiac workup for planned gastric bypass, follow up with outpatient band master Hypertension --continued telmisartan, metoprolol, HCTZ; started nifedipine and discharged with prescription Asthma --duonebs --stable HUSAM --CPAP at night Minutes to complete discharge: 35 Discharge Summary Problems reviewed: Yes Reason For Visit: SHORTNESS OF BREATH, R/O ACS. Current Active Problems Breathing difficulty (Acute) HUSAM (obstructive sleep apnea) (Acute) Condition: Improved - Instructions Diet, Activity, Other Instructions: One new prescription has been sent to your pharmacy for you high blood pressure , called Procardia/nifedipine. Take this medication as directed IN ADDITION TO all your other prescribed medications. You are on a total of five blood pressure medications: telmisartan, ToprolXL/ metoprolol, chlorthalidone, Procardia/nifedipine (new), and clonidine (when needed). It is very important you follow up either with your primary care provider, or with Dr. Mathias, the band master who saw you in the hospital, within 72 hours of your discharge. You need to have your blood pressure checked regularly. Return to the emergency department for any new or worsening symptoms. Referrals: Dl Malloy MD [Primary Care Provider] - Disposition: HOME - Home Medications Comprehensive Discharge Medication List: Ambulatory Orders Chlorthalidone [Hygroton -] 25 mg PO DAILY #14 tablet 01/24/16 Metoprolol Succinate [Toprol Xl] 100 mg PO DAILY 02/15/19 Albuterol Sulfate Inhaler - [Ventolin HFA Inhaler -] 2 inh PO Q4H PRN 08/07/19 Telmisartan [Micardis] 80 mg PO DAILY 08/07/19 Clonidine HCl [Catapres] 0.1 mg PO Q12H PRN #30 tablet 08/08/19 Nifedipine ER [Procardia XL -] 60 mg PO DAILY #30 tab.er.24 08/08/19 This patient is new to me today: Yes Date on this admission: 08/15/19 Emergency Visit: Yes ED Registration Date: 08/07/19 Care time: The patient presented to the Emergency Department on the above date and was hospitalized for further evaluation of their emergent condition. Critical Care patient: No - Discharge Referral Referred to [facility] No
[2019-08-08 11:58] VITALS: BP 155/87; PULSE 78; TEMP 98.9
== END 2019-08-08 13:03 | disposition home or self-care (01) ==
LOC: FER 20:55 → FM/S 23:43
PROVIDERS: ADMIT Internal Medicine; ATTEND Nurse Practitioner Acute Care
PROC: 3E033GC Introduction of Other Therapeutic Substance into Peripheral Vein, Percutaneous Approach (ICD-10-PCS; principal; 2019-08-07)
PROC: 3E013GC Introduction of Other Therapeutic Substance into Subcutaneous Tissue, Percutaneous Approach (ICD-10-PCS; 2019-08-07)
DX: R06.02 Shortness of breath (principal); J45.901 Unspecified asthma with (acute) exacerbation; G47.33 Obstructive sleep apnea (adult) (pediatric); I10 Essential (primary) hypertension
CPT/HCPCS: 36415; 71045-TC-FY; 80048; 80053; 81025; 82550; 83880; 84484; 85025; 85027; 93005; 94640; 96372; 96374; 99285-25; G0378; J0735; J1644

== ENCOUNTER 2020-01-05 00:12 | Emergency (ER) | payer OTHER ==
[2020-01-05 00:17] VITALS: BP 174/103; PULSE 94; TEMP 98.4; BMI 50.3
--- NOTE | 2020-01-05 00:27 | PDOC ---
History of Present Illness - General Chief Complaint: Edema Stated Complaint: "I have a lump on my shoulder" History Source: Patient Exam Limitations: No Limitations - History of Present Illness Initial Comments: 01/05/20 00:23 39-year-old female history of obesity generalized anxiety currently scheduled to undergo gastric bypass surgery here today complaining of a fullness or lump she noted in her right shoulder at the base of the right neck. Patient states she was talking face time on the phone and suddenly noticed that her right shoulder or clavicle area showed a fullness to it. States that she has not been sleeping well is under a lot of stress due to the COVID-19 pandemic as well as her upcoming surgery she is undergoing preop clearance for that. Denies any fevers chills nausea or vomiting does have a tightness she noted in the right muscle on that side no throat pain no difficulty breathing no shortness of breath no trauma no night sweats or weight loss no other current complaints Past History - Medical History Allergies/Adverse Reactions: Allergies Allergy/AdvReac Type Severity Reaction Status Date / Time No Known Drug Allergies Allergy Verified 01/05/20 00:20 Home Medications: Ambulatory Orders Chlorthalidone [Hygroton -] 25 mg PO DAILY #14 tablet 01/24/16 Metoprolol Succinate [Toprol Xl] 100 mg PO DAILY 02/15/19 Albuterol Sulfate Inhaler - [Ventolin HFA Inhaler -] 2 inh PO Q4H PRN 08/07/19 Telmisartan [Micardis] 80 mg PO DAILY 08/07/19 Clonidine HCl [Catapres] 0.1 mg PO Q12H PRN #30 tablet 08/08/19 Nifedipine ER [Procardia XL -] 60 mg PO DAILY #30 tab.er.24 08/08/19 Asthma: Yes (ASTHMA) COPD: No DVT: No Diabetes: No HTN: Yes - Surgical History Abdominal Surgery: Yes (ventral hernia repair 2013) - Immunization History Immunization Up to Date: Yes - Psycho-Social/Smoking History Smoking History: Never smoked Have you smoked in the past 12 months: No Number of Cigarettes Smoked Daily: 1 If you are a former smoker, when did you quit?: 08/2018 'Breaking Loose' booklet given: 08/15/16 - Substance Abuse Hx (Audit-C & DAST Scrn) How often the patient has a drink containing alcohol: Never Score: In Men: 4 or > Positive; In Women: 3 or > Positive: 0 Screen Result (Pos requires Nsg. Audit-10AR): Negative In the last yr the pt used illegal drug/Rx for NonMed reason: No Score: Yes response is considered Positive: 0 Screen Result (Positive result requires Nsg. DAST-10): Negative Review of Systems - Review of Systems Constitutional: No: Chills, Fever HEENTM: No: Eye Pain Respiratory: No: Cough, Orthopnea, Shortness of Breath Cardiac (ROS): No: Chest Pain, Edema ABD/GI: No: Nausea, Vomiting : No: Burning, Dysuria, Discharge Musculoskeletal: Yes: Muscle Pain, Other (base neck fullness, clavicular fullness) Integumentary: No: Bruising, Change in Color All Other Systems: Reviewed and Negative *Physical Exam - Vital Signs Last Vital Signs Temp Pulse Resp BP Pulse Ox 98.4 F 94 H 18 174/103 H 99 01/05/20 00:13 01/05/20 00:13 01/05/20 00:13 01/05/20 00:13 01/05/20 00:13 - Physical Exam 01/05/20 00:24 Awake alert no acute distress lungs are clear bilaterally heart is regular 30 murmurs rubs or gallops abdomen is soft nontender bile extremities are without edema examination of the right trapezial muscle shows some muscle tightness there is no palpable lymphadenopathy appreciated. No palpable lipoma. There is minimal fullness there believed to be from the muscle spasm however minimally appreciated on my exam patient is awake alert oriented x3 very anxious appearing Medical Decision Making - Medical Decision Making 01/05/20 00:25 39-year-old female history of BC generalized anxiety here today complaining of a fullness of the right shoulder between her shoulder and neck. On my exam there is some trapezial spasm otherwise no palpable masses recommend heat packs and Motrin as needed offered muscle relaxer patient declined. Will be given follow- up for ear nose and throat should she notice enlargement or a palpable mass in the future it is not resolved within a few weeks she should follow-up with Dr. Spencer also told to follow-up with your primary care doctor Discharge - Discharge Information Problems reviewed: Yes Clinical Impression/Diagnosis: Muscle spasm Condition: Improved Disposition: HOME - Admission No - Follow up/Referral Referrals: Carlos Spencer MD [Staff Physician] - - Patient Discharge Instructions Patient Printed Discharge Instructions: DI for Muscle Spasm Additional Instructions: It appears to have muscle spasm in the right trapezial muscle. This may be related to tension and stress or overexertion could be also related from abnormal sleeping position you can apply heat packs for comfort topical cream such as BenGay for any pain you can take Motrin 400 mg every 8 hours as needed. Should you notice any prominent masses or swelling that increases with time you should follow-up with ear nose and throat doctor Dr. Gabriel Jasso see referral for referral information and call to schedule. In addition you should also follow-up with your primary care doctor as her blood pressure is noted to be elevated today - Post Discharge Activity
== END 2020-01-05 00:32 | disposition home or self-care (01) ==
LOC: FER 00:12
DX: M62.838 Other muscle spasm (principal)
CPT/HCPCS: 99283-25

== ENCOUNTER 2021-02-22 18:40 | Emergency (ER) | payer OTHER ==
[2021-02-22 18:51] VITALS: TEMP 98.3; BMI 36.6
[2021-02-22] MEDS ORDERED: LABETALOL HCL 5 MG/1 ML (100MG/20 ML VIAL) IVPUSH ONE ×2 (20:19→21:12)
[2021-02-22] MEDS ORDERED: LABETALOL HCL 5 MG/1 ML (100MG/20 ML VIAL) ONE (20:33)
[2021-02-22 20:45] LABS: HEMATOCRIT 35.3 % (32.4-45.2); MCH 26.5 pg (25.7-33.7); MCHC 31.1 g/dl (32.0-36.0); MEAN CELL VOLUME 84.9 fl (80-96); MEAN PLT VOLUME 10.2 fl (7.5-11.1); PLATELET COUNT 216 10^3/uL (134-434); RBC 4.16 M/mm3 (3.60-5.2); RDW 15.1 % (11.6-15.6); WHITE BLOOD COUNT 7.7 K/mm3 (4.0-10.8)
[2021-02-22 21:03] LABS: ALBUMIN 3.8 g/dl (3.4-5.0); BILIRUBIN,TOTAL 0.7 mg/dl (0.2-1); CALCIUM 8.6 mg/dl (8.5-10); CREATININE 0.8 mg/dl (0.55-1.3); TOT PROT 6.8 g/dl (6.4-8.2)
[2021-02-22 21:37] LABS: CALCIUM OXALATE CRYSTALS MODERATE /hpf (NONE SEEN)
[2021-02-22 21:38] LABS: PLATELET ESTIMATE ADEQUATE
[2021-02-22 21:51] VITALS: BP 171/94
[2021-02-22 21:53] VITALS: PULSE 66
== END 2021-02-22 21:53 | disposition home or self-care (01) ==
LOC: FER 18:40
PROC: 3E033NZ Introduction of Analgesics, Hypnotics, Sedatives into Peripheral Vein, Percutaneous Approach (ICD-10-PCS; principal; 2021-02-22)
PROC: 3E033GC Introduction of Other Therapeutic Substance into Peripheral Vein, Percutaneous Approach (ICD-10-PCS; 2021-02-22)
DX: O16.9 Unspecified maternal hypertension, unspecified trimester (principal); Z3A.01 Less than 8 weeks gestation of pregnancy
CPT/HCPCS: 36415; 80053; 81003; 81015; 84703; 85025; 96374; 96375; 99284-25

== ENCOUNTER 2021-11-25 18:40 | Emergency (ER) | payer OTHER ==
[2021-11-25 19:09] VITALS: PULSE 66; TEMP 98.6; BMI 35.5
[2021-11-25] MEDS ORDERED: ACETAMINOPHEN 500 MG TABLET (FP) PO ONE (19:24)
[2021-11-25] MEDS ORDERED: AMOX TR/POT CLAV 875MG/125MG TABLETS (FP) PO ONE (19:24)
[2021-11-25] MEDS ORDERED: AMOX TR/POT CLAV 875MG/125MG TABLETS (FP) ONE (19:31)
[2021-11-25] MEDS ORDERED: ACETAMINOPHEN 500 MG TABLET (FP) ONE (19:31)
[2021-11-25] MEDS ORDERED: cloNIDine HCL 0.1 MG TABLET PO ONE (19:44)
[2021-11-25] MEDS ORDERED: cloNIDine HCL 0.1 MG TABLET ONE (19:49)
[2021-11-25] MEDS ORDERED: VALSARTAN 40 MG TABLET PO ONE (20:20)
[2021-11-25 20:52] VITALS: BP 174/110
== END 2021-11-25 21:10 | disposition home or self-care (01) ==
LOC: FER 18:40
DX: L03.213 Periorbital cellulitis (principal)
CPT/HCPCS: 99283-25; J0735

== ENCOUNTER 2022-07-12 22:29 | Emergency (ER) | payer OTHER ==
[2022-07-12 22:43] VITALS: BP 231/144; PULSE 75; RESP 16; TEMP 98.9; BMI 35.5
== END 2022-07-12 22:54 | disposition home or self-care (01) ==
LOC: FER 22:29
DX: S00.83XA Contusion of other part of head, initial encounter (principal); S16.1XXA Strain of muscle, fascia and tendon at neck level, initial encounter; V47.5XXA Car driver injured in collision with fixed or stationary object in traffic accident, initial encounter
CPT/HCPCS: 99281-25

== ENCOUNTER 2023-10-19 13:20 | Emergency (ER) | payer OTHER ==
[2023-10-19 13:25] VITALS: RESP 18; TEMP 98.4; BMI 38.5
[2023-10-19 14:29] LABS: HCG,QUALITATIVE URINE Negative
[2023-10-19] MEDS: LACTATED RINGERS SOLUTION 1000 ML INFUS.BAG IV ONE (14:30)
[2023-10-19 14:48] LABS: INR 1.05 (0.83-1.09)
[2023-10-19 14:51] LABS: ACTIVATED PTT 28.7 SECONDS (25.2-36.5); HEMATOCRIT 39.5 % (32.4-45.2); HEMOGLOBIN 12.5 G/dL (10.7-15.3); MCH 27.4 pg (25.7-33.7); MCHC 31.7 g/dl (32.0-36.0); MEAN CELL VOLUME 86.2 fl (80-96); MEAN PLT VOLUME 10.8 fl (7.5-11.1); PLATELET COUNT 237.8 10^3/uL (134-434); RBC 4.58 10^6/uL (3.60-5.2); RDW 15.7 % (11.6-15.6); WHITE BLOOD COUNT 6.8 10^3/uL (4.0-10.8)
[2023-10-19 14:57] LABS: BILIRUBIN,TOTAL 0.6 mg/dl (0.2-1); CREATININE 0.9 mg/dl (0.6-1.3); POTASSIUM 4.1 mmol/L (3.5-5.1); TOT PROT 6.8 g/dl (6.4-8.2)
[2023-10-19 15:19] LABS: PLATELET ESTIMATE ADEQUATE
[2023-10-19 17:59] VITALS: BP 179/100; PULSE 84
== END 2023-10-19 18:10 | disposition home or self-care (01) ==
LOC: FER 13:20
DX: K59.00 Constipation, unspecified (principal)
CPT/HCPCS: 36415; 74177-TC; 76705-TC; 80053; 81003; 81015; 83690; 84484; 84703; 85027; 85610; 85730; 87086; 99285-25